=== PATIENT | male | born 1960 | race Caucasian/White ===

== ENCOUNTER 2021-04-02 16:28 | Inpatient (IN) ==
[2021-04-02] MEDS ORDERED: HEPARIN 5,000 UNIT/1 ML VIAL ONE (16:47)
[2021-04-02] MEDS ORDERED: NITROGLYCERIN SL 0.4 MG TABLET SL STA (16:49)
[2021-04-02] MEDS ORDERED: HEPARIN 1,000 UNIT/1 ML VIAL IV STA (16:49)
[2021-04-02] MEDS ORDERED: ASPIRIN CHEW 81 MG TABLET PO STA (16:49)
[2021-04-02] MEDS ORDERED: MORPHINE 2 MG/1 ML SYRINGE IV STA (16:50)
[2021-04-02 17:15] LABS: Basophils # 0.1 10*3/uL (0.0-0.2); Basophils % 0.6 % (0.0-0.8); Eosinophils # 0.1 10*3/uL (0.0-0.87); Eosinophils % 0.6 % (0.00-10.9); Hematocrit 46.6 VOL% (42.0-52.0); Hemoglobin 15.5 GM/DL (14.0-18.0); Immature Granulocytes % 0.3 %; Immature Granulocytes Absolute 0.03 #; Lymphocytes # 3.3 10*3/uL (1.4-4.0); Lymphocytes % 34.4 % (21.2-54.2); Mean Corpuscular HGB Conc 33.3 GM/DL (32-36); Mean Corpuscular Volume 94.3 FL (87-102); Mean Platelet Volume 11.6 FL (9.6-12.0); Monocytes % 8.4 % (1.7-12.7); Neutrophils % 55.7 % (38.7-73.9); Platelet Count 199 T/CUMM (130-400); Red Blood Count 4.94 MC/CUMM (3.8-5.5); Red Cell Distribution Width 11.9 % (9.3-17.3); White Blood Count 9.6 T/CUMM (4-12)
[2021-04-02] MEDS ORDERED: fentaNYL 100 MCG/2 ML VIAL ONE (17:19)
[2021-04-02] MEDS ORDERED: MIDAZOLAM 2 MG/2 ML VIAL ONE (17:19)
[2021-04-02] MEDS ORDERED: TIROFIBAN 5,000 MCG/100 ML PREMIX IV ONE (17:31)
[2021-04-02 17:35] LABS: PT Patient Result 10.9 SECS (10.5-12.0)
[2021-04-02 17:35] LABS: Albumin 3.6 G/DL (3.4-5.0); Bilirubin,Total 0.6 MG/DL (0.20-1.00); Calcium 9.8 MG/DL (8.5-10.1); Potassium 3.8 MMOL/L (3.5-5.1); Total Protein 7.2 G/DL (6.4-8.2)
[2021-04-02] MEDS ORDERED: NITROGLYCERIN DRIP 50 MG/250 ML BOTTLE IV ONE (17:55)
[2021-04-02] MEDS ORDERED: TICAGRELOR 90 MG TABLET ONE (17:59)
[2021-04-02] MEDS ORDERED: HEPARIN/NACL 0.9% 2 UNITS/ML 2,000 UNIT/1,000 ML BAG IV ONE (18:15)
[2021-04-02] MEDS ORDERED: LIDOCAINE 1%/EPI INJ 20 ML VIAL ONE (18:15)
[2021-04-02] MEDS ORDERED: ONDANSETRON 4 MG/2 ML VIAL IV PRN (18:43)
[2021-04-02] MEDS ORDERED: MAGNESIUM SULF RIDER 2 GM/50 ML PREMIX IV PRN (18:43)
[2021-04-02] MEDS ORDERED: ACETAMINOPHEN 325 MG TABLET PO PRN (18:43)
[2021-04-02] MEDS ORDERED: POTASSIUM CHLORIDE 20 MEQ TABLET PO PRN (18:43)
[2021-04-02] MEDS ORDERED: NITROGLYCERIN DRIP 50 MG/250 ML BOTTLE IV SCH (19:00)
[2021-04-02] MEDS ORDERED: TIROFIBAN 5,000 MCG/100 ML PREMIX IV SCH (19:00)
[2021-04-02] MEDS ORDERED: SODIUM CHLORIDE 0.45% 1,000 ML IV SCH (19:00)
[2021-04-02] MEDS: VALSARTAN 80 MG TABLET PO SCH (20:48)
[2021-04-02] MEDS: ATORVASTATIN 80 MG TABLET PO SCH (20:48)
[2021-04-02] MEDS: METOPROLOL SUCCINATE XL 25 MG TABLET PO SCH (20:59)
[2021-04-03 04:21] LABS: Basophils # 0.1 10*3/uL (0.0-0.2); Basophils % 0.4 % (0.0-0.8); Eosinophils # 0.1 10*3/uL (0.0-0.87); Eosinophils % 0.6 % (0.00-10.9); Hematocrit 42.4 VOL% (42.0-52.0); Hemoglobin 14.3 GM/DL (14.0-18.0); Immature Granulocytes % 0.4 %; Immature Granulocytes Absolute 0.04 #; Lymphocytes # 2.5 10*3/uL (1.4-4.0); Mean Corpuscular HGB Conc 33.7 GM/DL (32-36); Mean Corpuscular Volume 94.6 FL (87-102); Mean Platelet Volume 11.5 FL (9.6-12.0); Monocytes % 8.4 % (1.7-12.7); Neutrophils % 68.2 % (38.7-73.9); Platelet Count 196 T/CUMM (130-400); Red Blood Count 4.48 MC/CUMM (3.8-5.5); Red Cell Distribution Width 11.9 % (9.3-17.3); White Blood Count 11.3 T/CUMM (4-12)
[2021-04-03] MEDS: PANTOPRAZOLE 40 MG TABLET PO SCH (08:09)
[2021-04-03] MEDS: ASPIRIN EC 81 MG TABLET PO SCH (08:09)
[2021-04-03] MEDS: TICAGRELOR 90 MG TABLET PO SCH ×2 (08:09→21:30)
[2021-04-03] MEDS: METOPROLOL SUCCINATE XL 25 MG TABLET PO SCH (08:09)
[2021-04-03] MEDS: VALSARTAN 80 MG TABLET PO SCH ×2 (08:09→21:30)
[2021-04-03 08:16] LABS: Calcium 8.7 MG/DL (8.5-10.1); Potassium 3.8 MMOL/L (3.5-5.1)
[2021-04-03] MEDS: ISOSORBIDE MONONITRATE 30 MG TABLET PO SCH (12:26)
[2021-04-03] MEDS: INSULIN LISPRO 100 UNIT/ML SUBCUT SCH (17:41)
[2021-04-03] MEDS: ATORVASTATIN 80 MG TABLET PO SCH (21:30)
[2021-04-04] MEDS: INSULIN LISPRO 100 UNIT/ML SUBCUT SCH ×3 (07:13→12:35)
[2021-04-04 07:46] LABS: Basophils # 0.1 10*3/uL (0.0-0.2); Basophils % 0.5 % (0.0-0.8); Eosinophils # 0.1 10*3/uL (0.0-0.87); Eosinophils % 0.9 % (0.00-10.9); Hematocrit 45.9 VOL% (42.0-52.0); Hemoglobin 15.6 GM/DL (14.0-18.0); Immature Granulocytes % 0.2 %; Immature Granulocytes Absolute 0.02 #; Lymphocytes # 1.9 10*3/uL (1.4-4.0); Lymphocytes % 18.6 % (21.2-54.2); Mean Corpuscular Volume 94.8 FL (87-102); Mean Platelet Volume 11.4 FL (9.6-12.0); Monocytes % 8.6 % (1.7-12.7); Neutrophils % 71.2 % (38.7-73.9); Platelet Count 196 T/CUMM (130-400); Red Blood Count 4.84 MC/CUMM (3.8-5.5); Red Cell Distribution Width 11.9 % (9.3-17.3); White Blood Count 9.9 T/CUMM (4-12)
[2021-04-04] MEDS ORDERED: DEXTROSE 50% 25 GM/50 ML VIAL IV PRN (07:50)
[2021-04-04] MEDS ORDERED: GLUCAGON 1 MG VIAL IM PRN (07:50)
[2021-04-04 08:00] LABS: Calcium 8.9 MG/DL (8.5-10.1); Osmolality,Calculated 290.1 MOS/KG (273-304); Potassium 3.7 MMOL/L (3.5-5.1)
[2021-04-04] MEDS ORDERED: metFORMIN 500 MG TABLET PO SCH (08:07)
[2021-04-04 08:21] LABS: Risk Ratio 7.06; VLDL Cholesterol 36.6 MG/DL
[2021-04-04 08:29] VITALS: BP 118/71
[2021-04-04] MEDS: VALSARTAN 80 MG TABLET PO SCH (09:44)
[2021-04-04] MEDS: METOPROLOL SUCCINATE XL 25 MG TABLET PO SCH (09:44)
[2021-04-04] MEDS: ISOSORBIDE MONONITRATE 30 MG TABLET PO SCH (09:45)
[2021-04-04] MEDS: PANTOPRAZOLE 40 MG TABLET PO SCH (09:45)
[2021-04-04] MEDS: ASPIRIN EC 81 MG TABLET PO SCH (09:46)
[2021-04-04] MEDS: TICAGRELOR 90 MG TABLET PO SCH (09:46)
[2021-04-04] MEDS ORDERED: INSULIN GLARGINE 100 UNIT/ML SUBCUT SCH (21:00)
== END 2021-04-04 13:17 | disposition home or self-care (01) | DRG 247 ==
LOC: N.ED 16:28 → N.CC 18:47 → N.TELEN 04-03 15:54
PROVIDERS: ADMIT Internal Medicine Interventional Cardiology; ATTEND Internal Medicine Interventional Cardiology
PROC: CLCCHCL (ICD-10-PCS; 2021-04-02 18:30)